=== PATIENT | male | born 1950 ===

== ENCOUNTER → 2020-05-06 | Outpatient (CLI) | payer MEDICARE, OTHER ==
[2020-05-06 14:01] LABS: BASOPHILS ABSOLUTE AUTO 0.03 K/mm3 (0.00-0.23); BASOPHILS PERCENT AUTO 0 % (0-2); EOSINOPHILS ABSOLUTE AUTO 0.03 K/mm3 (0.00-0.68); EOSINOPHILS PERCENT AUTO 0 % (0-6); Hematocrit 47.1 % (37.0-53.0); IMMATURE GRAN ABSOLUTE AUTO 0.04 K/mm3 (0.00-0.10); IMMATURE GRAN PERCENT AUTO 0 % (0-1); LYMPHOCYTES ABSOLUTE AUTO 1.56 K/mm3 (0.84-5.20); LYMPHOCYTES PERCENT AUTO 15 % (21-46); MONOCYTES PERCENT AUTO 6 % (4-13); Mean Corpuscular HGB 30.5 pg (26.0-34.0); Mean Corpuscular Volume 90 fL (80-100); Mean Platelet Volume 9.6 fL (9.1-12.4); NEUTROPHILS ABSOLUTE AUTO 8.25 K/mm3 (1.96-9.15); NEUTROPHILS PERCENT AUTO 79 % (41-73); Platelet Count 256 K/mm3 (150-400); RDW Coefficient Variation 14.3 % (11.7-14.2); RDW Standard Deviation 47.3 fL (35.1-46.3); Red Blood Cell Count 5.25 M/mm3 (4.30-5.90); White Blood Cell Count 10.51 K/mm3 (4.00-11.30)
[2020-05-06 14:12] LABS: Anion Gap 7 mmol/L (6-16); Blood Urea Nitrogen 15 mg/dL (8-24); Bun/Creatinine Ratio 12.4 (12.0-20.0); CO2, Blood 30 mmol/L (21-32); Calcium, Blood 9.5 mg/dL (8.5-10.1); Chloride, Blood 103 mmol/L (98-108); Creatinine, Blood 1.21 mg/dL (0.60-1.20); Glomerular Filtration Rate 59 (60-); Glucose, Blood 130 mg/dL (70-99); Potassium, Blood 3.8 mmol/L (3.5-5.5); Sodium, Blood 140 mmol/L (136-145)
[2020-05-06 14:14] LABS: Troponin I <0.017 ng/mL (0.000-0.040)
== END | disposition home or self-care (01) ==
LOC: LAB SHORT 13:57
PROVIDERS: Family Medicine
DX: I10 Essential (primary) hypertension (principal)
CPT/HCPCS: 80048; 84484; 85025

== ENCOUNTER 2023-03-22 05:12 | Inpatient (IN) | payer MEDICARE ==
[~2023-03-22] VITALS: Ht 177.8 cm; Wt 87.9 kg
[2023-03-22] VITALS (7 sets, daily range): BP systolic 141–163; BP diastolic 81–97
[2023-03-22] MEDS ORDERED: Diflucan100 MG PO (05:45)
[2023-03-22] MEDS ORDERED: NYSTOP15 GM TOP (05:45)
[2023-03-22] MEDS ORDERED: FLOMAX0.4 MG PO (05:45)
[2023-03-22] MEDS ORDERED: LOSA50 PO (05:46)
[2023-03-22] MEDS ORDERED: Ventolin/Prove6.7 GM INH (05:46)
[2023-03-22] MEDS ORDERED: HYDCHL25 PO (05:46)
[2023-03-22] MEDS ORDERED: ROSUVASTATIN CAL5 MG PO (05:47)
[2023-03-22 05:58] LABS: BASOPHILS ABSOLUTE AUTO 0.03 K/mm3 (0.00-0.23); BASOPHILS PERCENT AUTO 0 % (0-2); EOSINOPHILS ABSOLUTE AUTO 0.04 K/mm3 (0.00-0.68); EOSINOPHILS PERCENT AUTO 0 % (0-6); Hematocrit 38.2 % (37.0-53.0); Hemoglobin 13.3 g/dL (13.5-17.5); IMMATURE GRAN ABSOLUTE AUTO 0.11 K/mm3 (0.00-0.10); IMMATURE GRAN PERCENT AUTO 1 % (0-1); LYMPHOCYTES ABSOLUTE AUTO 0.94 K/mm3 (0.84-5.20); LYMPHOCYTES PERCENT AUTO 5 % (21-46); MONOCYTES ABSOLUTE AUTO 0.65 K/mm3 (0.16-1.47); MONOCYTES PERCENT AUTO 4 % (4-13); Mean Corpuscular HGB Conc 34.8 g/dL (31.5-36.5); Mean Corpuscular Volume 89 fL (80-100); Mean Platelet Volume 8.9 fL (9.1-12.4); NEUTROPHILS ABSOLUTE AUTO 16.22 K/mm3 (1.96-9.15); NEUTROPHILS PERCENT AUTO 90 % (41-73); Platelet Count 258 K/mm3 (150-400); RDW Coefficient Variation 13.2 % (11.7-14.2); RDW Standard Deviation 43.1 fL (35.1-46.3); Red Blood Cell Count 4.29 M/mm3 (4.30-5.90); White Blood Cell Count 17.99 K/mm3 (4.00-11.30)
[2023-03-22 06:16] LABS: Albumin, Blood 2.9 g/dL (3.4-5.0); Albumin/Globulin Ratio 0.8 (0.8-1.8); Bilirubin, Total 1.3 mg/dL (0.1-1.0); Bun/Creatinine Ratio 12.6 (12.0-20.0); Calcium, Blood 8.3 mg/dL (8.5-10.1); Creatinine, Blood 1.67 mg/dL (0.60-1.20); Globulin, Blood 3.5 g/dL (2.2-4.0); Potassium, Blood 3.2 mmol/L (3.5-5.5); Total Protein, Blood 6.4 g/dL (6.4-8.2)
[2023-03-22 06:32] LABS: Source, Urine Clean Catch
[2023-03-22 06:37] LABS: Appearance, Urine Clear (Clear); Bilirubin, Urine Neg (Neg); Blood, Urine 4+ (Neg); Glucose Qualitative, Urine 1+ (Neg); Ketones, Urine 1+ (Neg); Leukocyte Esterase, Urine 1+ (Neg); Nitrite, Urine Neg (Neg); Protein, Urine Neg (Neg); Specific Gravity, Urine 1.015 (1.003-1.022); Urobilinogen, Urine NORM (Normal)
[2023-03-22 06:43] LABS: Color, Urine Pale Yellow (P-Yellow)
[2023-03-22 06:44] LABS: Amorphous Light (0-Heavy); Bacteria Rare /hpf; Squamous Epithelial Cells Rare /hpf (Few)
--- NOTE | 2023-03-22 15:22 | NUR ---
ADMISSION - LATE ENTRY PT ADMIT TO MEDICAL FLOOR @1320 VIA GURNEY. PT ABLE TO ASSIST WITH TRANSFER TO HOSPITAL BED. AROUND 1330 PT WAS TAKEN DOWN TO OFFICE ASST FOR LEFT NEPHROSTOMY TUBE PLACEMENT. PT RETURNED AROUND 1410. NO C/O PAIN. PT 02 DID DROP TO AROUND 93%. PLACED 2L 02 NC. PT CURRENTLY SATING AROUND 96%. BP ELEVATED. PRN PO HYDRALAZINE GIVEN. Q15 VITALS OBTAINED FOR FIRST HR BACK FROM SURGERY. EMPTIED 450ML FROM NEPHROSTOMY BAG. SON AT BEDSIDE. PT REQUESTING ICE CHIPS. LUNG SOUNDS CLEAR. HR IRREGULAR. CALL LIGHT IN REACH. BED IN LOWEST POSITION.
--- NOTE | 2023-03-22 16:39 | NUR ---
SHIFT SUMMARY: PT A&O X4. PT PLEASANT AND COOPERATIVE WITH CARE. PT ONE PERSON ASSIST W/ TRANSFERS. HAS BEEN LETHARGIC SINCE NEPHROSTOMY PLACEMENT. PT HAS NOT C/O PAIN SINCE PRIOR TO SURGERY. NEPHROSTOMY DRAINAGE OF 850 SO FAR THIS SHIFT. PLAN FOR PT TO TRANSFER TO [facility] ONCE BED BECOMES AVAILABLE. PT PLACED ON 2L NC POST SURGERY. WILL ATTEMPT TO WEAN. BP ELEVATED. PRN BP MEDICATIONS ADMINISTERED PER EMAR. CALL LIGHT IN REACH. FAMILY AT BEDSIDE. BED IN LOWEST POSITION.
[2023-03-23 02:13] VITALS: BP 148/75
[2023-03-23 04:57] LABS: BASOPHILS ABSOLUTE AUTO 0.02 K/mm3 (0.00-0.23); BASOPHILS PERCENT AUTO 0 % (0-2); EOSINOPHILS ABSOLUTE AUTO 0.07 K/mm3 (0.00-0.68); EOSINOPHILS PERCENT AUTO 0 % (0-6); Hematocrit 35.2 % (37.0-53.0); Hemoglobin 11.9 g/dL (13.5-17.5); IMMATURE GRAN ABSOLUTE AUTO 0.11 K/mm3 (0.00-0.10); IMMATURE GRAN PERCENT AUTO 1 % (0-1); LYMPHOCYTES ABSOLUTE AUTO 1.37 K/mm3 (0.84-5.20); LYMPHOCYTES PERCENT AUTO 8 % (21-46); MONOCYTES ABSOLUTE AUTO 0.91 K/mm3 (0.16-1.47); MONOCYTES PERCENT AUTO 6 % (4-13); Mean Corpuscular HGB 30.4 pg (26.0-34.0); Mean Corpuscular HGB Conc 33.8 g/dL (31.5-36.5); Mean Corpuscular Volume 90 fL (80-100); Mean Platelet Volume 9.2 fL (9.1-12.4); NEUTROPHILS ABSOLUTE AUTO 14.04 K/mm3 (1.96-9.15); NEUTROPHILS PERCENT AUTO 85 % (41-73); Platelet Count 242 K/mm3 (150-400); RDW Coefficient Variation 13.6 % (11.7-14.2); RDW Standard Deviation 44.4 fL (35.1-46.3); Red Blood Cell Count 3.91 M/mm3 (4.30-5.90); White Blood Cell Count 16.52 K/mm3 (4.00-11.30)
--- NOTE | 2023-03-23 05:03 | NUR ---
END OF SHIFT SUMMARY PT A&O x4, VSS, AFEBRILE. PT PLEASANT AND COOPERATIVE WITH CARE PROVIDED. PT SLEPT WELL OVER NIGHT. NO C/O L SIDE FLANK PAIN. PT RECEIVED IV ANTIBIOTICS. PT UP AD JUANY, INDEPENDENT WITH ADLs. NEPHROSTOMY BAG PATENT, DRAINING WELL. URINE IS SVETLANA COLORED. 500mL OUTPUT AT 0500. IS ROOMING IN WITH PT. PT ABLE TO MAKE NEEDS KNOWN. PT ON WAITING LIST TO GET A BED AT [facility] IN [place]. CALL LIGHT WITHIN REACH, TM.
[2023-03-23 05:29] LABS: Bun/Creatinine Ratio 15.9 (12.0-20.0); Creatinine, Blood 1.38 mg/dL (0.60-1.20); Potassium, Blood 3.4 mmol/L (3.5-5.5)
[2023-03-23 05:51] VITALS: BP 157/82
[2023-03-23 07:19] VITALS: BP 153/78
[2023-03-23 15:32] VITALS: BP 137/80
--- NOTE | 2023-03-23 17:56 | NUR ---
SHIFT SUMMARY PT AXO, PLEASANT AND COOPERATIVE WITH CARE. EAGER TO BE TRANSFERRED TO [facility]. VSS. UP WITH 1 ASSIST WITH FWW AND GB. PT HAD SHOWER THIS SHIFT. NEPHROSTOMY SITE LOOKS WNL, CDI. PATENT AND DRAINING BLOOD TINGED URINE. PT REPORTS SMALL AMOUNT OF "BLACK" STOOL WHILE IN BATHROOM FOR SHOWER. THIS NURSE EDUCATED PT ABOUT BLACK STOOL AND ASKED PT TO LET US KNOW WHEN HE FEELS HES READY FOR ANOTHER BM SO THIS NURSE CAN ASSESS. PT AGREES. IV PATENT AND SALINE LOCKED. BED IN LOW POSITION, CALL LIGHT WITHIN REACH. 775 ML OUT VIA NEPHROSTOMY THIS SHIFT.
[2023-03-23 19:38] VITALS: BP 122/65
[2023-03-24 05:29] LABS: BASOPHILS ABSOLUTE AUTO 0.04 K/mm3 (0.00-0.23); BASOPHILS PERCENT AUTO 0 % (0-2); EOSINOPHILS ABSOLUTE AUTO 0.22 K/mm3 (0.00-0.68); EOSINOPHILS PERCENT AUTO 2 % (0-6); Hematocrit 32.8 % (37.0-53.0); Hemoglobin 11.2 g/dL (13.5-17.5); IMMATURE GRAN ABSOLUTE AUTO 0.11 K/mm3 (0.00-0.10); IMMATURE GRAN PERCENT AUTO 1 % (0-1); LYMPHOCYTES ABSOLUTE AUTO 1.67 K/mm3 (0.84-5.20); LYMPHOCYTES PERCENT AUTO 12 % (21-46); MONOCYTES ABSOLUTE AUTO 0.92 K/mm3 (0.16-1.47); MONOCYTES PERCENT AUTO 7 % (4-13); Mean Corpuscular HGB 30.5 pg (26.0-34.0); Mean Corpuscular HGB Conc 34.1 g/dL (31.5-36.5); Mean Corpuscular Volume 89 fL (80-100); Mean Platelet Volume 9.4 fL (9.1-12.4); NEUTROPHILS ABSOLUTE AUTO 10.96 K/mm3 (1.96-9.15); NEUTROPHILS PERCENT AUTO 79 % (41-73); Platelet Count 243 K/mm3 (150-400); RDW Coefficient Variation 13.4 % (11.7-14.2); Red Blood Cell Count 3.67 M/mm3 (4.30-5.90); White Blood Cell Count 13.92 K/mm3 (4.00-11.30)
[2023-03-24 05:53] LABS: Bun/Creatinine Ratio 18.2 (12.0-20.0); Calcium, Blood 7.7 mg/dL (8.5-10.1); Creatinine, Blood 1.1 mg/dL (0.60-1.20); Potassium, Blood 3.3 mmol/L (3.5-5.5)
--- NOTE | 2023-03-24 06:20 | NUR ---
NOC SHIFT SUMMARY: WBC CONTINUES TO TREND DOWNWARD. PROBABLE DISCHARGE TO HOME THIS AM. NO C/O PAIN. CHANGE TO PO ANTIBIOTICS TODAY. INDEPENDENT IN ROOM.
[2023-03-24 07:44] VITALS: BP 155/85
[2023-03-24] MEDS ORDERED: Acetaminophen325 M1 PO (11:07)
[2023-03-24] MEDS ORDERED: AMLO5 PO (11:16)
[2023-03-24] MEDS ORDERED: LEVFLO500 PO (11:16)
[2023-03-24] MEDS ORDERED: VISBIOME 112.51 EACH PO (11:17)
[2023-03-24] MEDS ORDERED: TRELEGY ELLIPT1 EACH INH (11:20)
--- NOTE | 2023-03-24 12:11 | NUR ---
DISCHARGE SUMMARY PT DISCHARGED TO HOME. PT LEFT ROOM PRIOR TO THIS NOTE VIA WHEELCHAIR WITH FILM LOADER ESCORT WITH HIS SPOUSE PRESENT. PT EDUCATED ON ALL DISCHARGE INSTRUCTIONS, ALL QUESTIONS ANSWERED. PT AGREES TO FOLLOW UP WITH DR ROB AND PCP AND TO TAKE MEDICATIONS PRESCRIBED. PT EDUCATED ON POST OP CARE WITH HIS NEPHROSTOMY SITE AND DRAINAGE BAG, AND IMPORTANCE OF PROPER HYGIENE.
== END 2023-03-24 11:55 | disposition home or self-care (01) | DRG 698 ==
LOC: ER 05:12 → MEDS 11:32
PROVIDERS: Emergency Medicine; ADMIT Internal Medicine
PROC: 0T9130Z Drainage of Left Kidney with Drainage Device, Percutaneous Approach (ICD-10-PCS; principal; 2023-03-22)
PROC: BT42ZZZ Ultrasonography of Left Kidney (ICD-10-PCS; 2023-03-22)
PROC: BT121ZZ Fluoroscopy of Left Kidney using Low Osmolar Contrast (ICD-10-PCS; 2023-03-22)
PROC: 3E03329 Introduction of Other Anti-infective into Peripheral Vein, Percutaneous Approach (ICD-10-PCS; 2023-03-22)
DX: T83.89XA Other specified complication of genitourinary prosthetic devices, implants and grafts, initial encounter (principal); A41.9 Sepsis, unspecified organism; R65.20 Severe sepsis without septic shock; R39.0 Extravasation of urine; I12.9 Hypertensive chronic kidney disease with stage 1 through stage 4 chronic kidney disease, or unspecified chronic kidney disease; N18.30 Chronic kidney disease, stage 3 unspecified; E87.6 Hypokalemia; Z87.442 Personal history of urinary calculi; Z98.890 Other specified postprocedural states; Z88.0 Allergy status to penicillin; Z91.030 Bee allergy status; Z79.899 Other long term (current) drug therapy; Z79.51 Long term (current) use of inhaled steroids; Z87.891 Personal history of nicotine dependence; Y83.1 Surgical operation with implant of artificial internal device as the cause of abnormal reaction of the patient, or of later complication, without mention of misadventure at the time of the procedure
CPT/HCPCS: 36415; 50432; 51798; 74176; 74177; 76937; 80048; 80053; 81001; 83605; 85025; 87040; 87086; 94640; 94664; 94760; 96361; 96365-59; 96366; 96367; 96368; 96375; 96376; 99152; 99285-25; A9270; C1729; C1769; C1894; J0696; J1170; J2185; J2250; J2405; J3010; J7030; J7040; Q9967